=== PATIENT | male | born 1960 | race Caucasian/White ===

== ENCOUNTER 2019-01-27 15:11 | Emergency (ER) | payer OTHER ==
[~2019-01-27] VITALS: Ht 188 cm; Wt 85.7 kg
--- OUTSIDE RECORDS SUMMARY | 2019-01-27 15:13 | XMS REPORT | Clinical Summary ---
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 Active Problems No known active problems Family History Medical History Relation Name Comments Clotting disorder Neg Hx Social History Date Tobacco Use Types Packs/Day Years Used Never Smoker Alcohol Use Drinks/Week oz/Week Comments No Sex Assigned at Date Recorded Not on file Industry Job Start Date Occupation Not on file Not on file Not on file Travel End Travel History Travel Start No recent travel history available. Last Filed Vital Signs Not on file Plan of Treatment Health Maintenance Due Date Last Done Comments COLONOSCOPY SCREENING 2009 SHINGLES VACCINES (#1) 2009 INFLUENZA VACCINE 03/08/2019 Results Not on fileafter 01/26/2018 Insurance Type Payer Benefit Subscriber ID Effective Phone Address Plan / Dates Group PPO AETNA AETNA PPO xxxxxxxxxx 2009-P OPEN resent CHOICE Advance Directives Patient has advance care planning documents on file. For more information, maxx young contact: Alan Gonzales [address] [place] [address]
--- NOTE | 2019-01-27 16:29 | Diagnostic Imaging Report ---
Exams: Head and cervical spine CTs without IV contrast History: Trauma, fall Comparison studies: None Technique: Axial images were obtained from the brain and cervical spine. Coronal and sagittal images reconstructed from the axial data. Dose modulation, iterative reconstruction, and/or weight based adjustment of the mA/kV was utilized to reduce the radiation dose to as low as reasonably achievable. Intravenous contrast: None Findings: Head CT: Scalp: Small right paramedian posterior frontal laceration. No retained hyperdense foreign body. Bones: No fractures, blastic or lytic lesions. Extra-axial spaces: No masses. No fluid collections. Brain sulci: Appropriate for age. Ventricles: Normal in size and configuration. No hydrocephalus. Parenchyma: No abnormal densities. No masses, acute hemorrhage, acute or chronic vascular insults. Sellar/suprasellar region: No abnormalities. Craniocervical junction: The foramen magnum is patent. No Chiari one malformation. Prior nasal sinuses: Small nonspecific secretions in the right sphenoid sinus and right posterior ethmoids. Cervical spine CT: Fractures: No acute fractures. Chronic-appearing T2 superior endplate depression deformity with only minimal height loss. No retropulsion. Soft tissues: No gross acute abnormalities. Atlantoaxial articulation: Intact. Alignment: Strain cervical curvature may be positional. No subluxations. Cervicomedullary junction: No abnormalities. The foramen magnum is patent. Vertebrae: No infection or neoplasm. Degenerative changes: At C5-C6 there is a mildly degenerated disc with mild mixed cystic and sclerotic degenerative endplate changes, disc osteophyte complex and uncovertebral arthrosis which result in mild canal stenosis and moderate left and mild right foraminal stenosis. Incidental findings: Atherosclerotic calcifications in the carotid siphons and left intradural vertebral artery. Partially imaged calcified left prevascular mediastinal lymph node compatible with sequela of remote granulomatous infection/inflammation in in the context of a partially imaged small left upper lobe granuloma. IMPRESSION: Head CT: 1. No acute intracranial abnormalities. 2. Right paramedian posterior frontal scalp laceration. 3. No retained foreign body or fracture. Cervical spine CT: 1. No cervical spine fracture or subluxation. 2. Chronic-appearing T2 superior endplate depression deformity. 3. Degenerative changes at C5-C6. 4. Cannot exclude ligament, spinal cord and or vascular abnormalities on the basis of this examination. Signed by: Dr. Héctor Kang M.D. on 01/27/2019 4:26 PM
[2019-01-27] MEDS ORDERED: LIDOCAINE 1% W/EPINEPHRINE 20 ML VIAL INJ ONE (17:00)
[2019-01-27] MEDS ORDERED: ACETAMINOPHEN 325 MG TAB PO ONE (17:00)
[2019-01-27] MEDS ORDERED: TETANUS/DIPHTHERIA TOX ADULT 0.5 ML SYR ONE (17:59)
[2019-01-27 18:17] VITALS: BP 133/87
[2019-01-27] MEDS ORDERED: TETANUS/DIPHTHERIA TOX ADULT 0.5 ML SYR IM ONE (18:30)
== END 2019-01-27 18:18 | disposition home or self-care (01) ==
LOC: FSED 15:11
DX: S01.01XA Laceration without foreign body of scalp, initial encounter (principal); S16.1XXA Strain of muscle, fascia and tendon at neck level, initial encounter; S06.0X0A Concussion without loss of consciousness, initial encounter; J45.909 Unspecified asthma, uncomplicated; M50.30 Other cervical disc degeneration, unspecified cervical region; W01.198A Fall on same level from slipping, tripping and stumbling with subsequent striking against other object, initial encounter; Y92.89 Other specified places as the place of occurrence of the external cause
CPT/HCPCS: 70450; 72125; 90471; 90714; 96372; 99283